=== PATIENT | male | born 1960 | race Caucasian/White ===

== ENCOUNTER → 2019-12-18 10:50 | Outpatient (CLI) | payer OTHER, SELFPAY ==
--- NOTE | ~2019-12-18 | XR_ITS ---
EXAMINATION: XR cervical spine 4-5V EXAM DATE: 12/18/2019 11:41 INDICATION: Neck pain mostly left side. Left shoulder pain. Bilateral finger tingling. TECHNIQUE: Cervical spine frontal, lateral, lateral swimmers, and open-mouth odontoid projections. There is no prior study for comparison. FINDINGS: There is mild to moderate disc disease at C5-6 and C6-7, mild at the other cervical levels . There is overall mild to moderate cervical arthropathy. There is no evidence of acute cervical frac ture. The odontoid process is intact. Pre-dens space is normal. Prevertebral soft tissue is normal . There are no soft tissue abnormalities identified. The vertebral bodies are aligned. IMPRESSION: 1. Mild to moderate cervical spondylosis. Reviewed, dictated and finalized at location A. 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
--- NOTE | ~2019-12-18 | MR_ITS ---
EXAMINATION: MR cervical spine wo con EXAM DATE: 12/18/2019 11:54 INDICATION: Neck pain, limited range of motion. Bilateral hand pain. TECHNIQUE: Multi-sequential, multiplanar MR images of the cervical spine were obtained without contra st. Axial T2, axial T2 MERGE sequence. Sagittal T1, T2, T2 fat saturation images also obtained. Cor relation is made to CT cervical spine 03/09/2016. FINDINGS: There is mild to moderate disc disease C4-7. There is 2-3 mm anterolisthesis C4 on C5. The spinal cord signal intensity and intrinsic morphology is normal. Cervicomedullary junction is normal in appearance. There are no suspicious marrow signal abnormalities. Paraspinal soft tissue is unrema rkable. Level by level evaluation: C2-C3: Disc does not extend beyond the endplate margin. Uncovertebral joint arthropathy: None. Facet joint arthropathy: Mild bilateral. Neural foraminal stenosis: No stenosis. Central canal stenosis: No stenosis. C3-C4: Disc does not extend beyond the endplate margin. Uncovertebral joint arthropathy: Mild to moderate right, mild left. Facet joint arthropathy: Moderate right, mild to moderate left. Neural foraminal stenosis: Moderate to severe right, mild to moderate left. Central canal stenosis: No stenosis. C4-C5: There is a minimal diffuse disc bulge. Uncovertebral joint arthropathy: Mild to moderate left, mild right. Facet joint arthropathy: Moderate bilateral. Fused on the right.. Neural foraminal stenosis: Mild to moderate left, mild right. Central canal stenosis: No stenosis. C5-C6: There is a mild diffuse disc bulge. Small superimposed right central extrusion with cephalad m igration. Uncovertebral joint arthropathy: Moderate left, mild to moderate right. Facet joint arthropathy: Moderate bilateral. Neural foraminal stenosis: Moderate to severe left, mild to moderate right. Central canal stenosis: Mild. C6-C7: There is a mild diffuse disc bulge. Uncovertebral joint arthropathy: Moderate left, mild to moderate right. Facet joint arthropathy: Moderate bilateral. Neural foraminal stenosis: Mild to moderate left, mild right. Central canal stenosis: Mild. C7-T1: Disc does not extend beyond the endplate margin. Uncovertebral joint arthropathy: None. Facet joint arthropathy: Mild bilateral. Neural foraminal stenosis: Mild bilateral. Central canal stenosis: No stenosis. IMPRESSION: 1. Cervical spondylosis as detailed above. Reviewed, dictated and finalized at location A. 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
== END ==
PROVIDERS: Visit Provider Physician Assistant
DX: M47.892 Other spondylosis, cervical region (principal)
CPT/HCPCS: 72050; 72141

== ENCOUNTER → 2021-03-17 08:52 | Outpatient (CLI) | payer OTHER, SELFPAY ==
[2021-03-17 18:42] LABS: SARS-CoV-2 RNA PCR Negative
== END ==
PROVIDERS: Visit Provider Physician Assistant
DX: Z20.822 Contact with and (suspected) exposure to COVID-19 (principal); R09.89 Other specified symptoms and signs involving the circulatory and respiratory systems
CPT/HCPCS: C9803; U0003; U0005

== ENCOUNTER 2024-02-11 12:30 | Outpatient (RCR) | payer OTHER, SELFPAY ==
--- NOTE | 2024-01-08 16:39 | OPREHPOC ---
Outpatient Therapy Plan of Care This is a Multidisciplinary Plan of Care that may contain components documented by all disciplines (PT, OT, and ST.) PT Problem 1 PT Problem #1 Knowledge Deficit PT Goal 1 Goal * indep with HEP * correct posture with exercises PT Problem 2 PT Problem #2 Pain PT Goal 1 Goal 1* pain in R hip of 3/10 at worst 2* LE functional scale of 35% limitation in activity level 3* standing/walking tolerance of 2 hours reported PT Problem 3 PT Problem #3 Impaired Range of Motion PT Goal 1 Goal increase ROM of R hip, to improve mobility and self care of putting on shoes: 1* supine flexion 105'; 2* ER in sitting, place R foot on L distal thigh 3* hamstring length supine SLR 50' 4* anterior hip/quad with prone knee flexion 115' PT Problem 4 PT Problem #4 Impaired Strength PT Goal 1 Goal increase strength of R hip and knee to improve mobility: 1* single leg standing 20 seconds with good stability 2* perform mat exercises x 15 reps with 3# ankle wt 3* alternating step pattern for 12 steps with good stability of R LE
--- NOTE | 2024-01-08 16:39 | PTOPEVAL1 ---
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 He wants to treat his hip issues first. His medical history includes R femur ORIF and THR in September. He has used the walker until 2 weeks ago and has returned to work. He has decreased standing, walking and ability on stairs, with issues reaching his feet to put on shoes. LE functional scale rating of 53% limitation in activity level. He has been doing some bed exercises at home and walking only. He does have a membership to [employer]. With the evaluation, he has weakness over R hip and knee with decreased WB in standing and poor gait pattern; his 5 reps sit/stand time is 15 sec = normal; 2 minute walking test distance of 425'; on stairs he has difficulty and knee pain with alternating step pattern; there is decreased flexibility over R hip motions of flexion, IR and ER, with hamstring and anterior hip-quad tightness
--- NOTE | 2024-01-17 15:13 | PCPTNOTE ---
Patient arrived 25 minutes late for 30 minute appointment. No Show.
--- NOTE | 2024-02-11 13:36 | PTOPEVAL1 ---
Assessment and note entered by Amna Barahona, PT Evaluation Information Assessment Status Discharge R hip/ EVALUATION cervical pain Diagnosis cervical radiculopathy, spinal stenosis Onset onset for neck pain about 1 year ago Subjective Information hip is doing better, more flexible- almost able to reach my foot; have been doing the exercises, going to the pool at [employer]; going to be out of town the month of February; want to have his neck evaluated today and return for treatment to neck after get back from trip in March; chronic neck pain since 2004, gradual increase over past year, no trauma to neck; more pain into arms when sitting, driving and arms hanging down; cannot sleep on his back; have seen ortho dr about neck- dr discussed surgery with pt--pt wants to hold off on surgery as long as able; recent imaging- per pt: bulging and protrusion throughout neck and entire spine; have not had PT in the past for his neck; Reported Pain Level Pain Score Self Report Additional Pain Score Comments R hip: pain range in the past week 0-3/10; walk/ stand tolerance about 1 hour; neck pain: 1-4/10; pain radicular tingle into all fingertips on R and L; increase pain: lie flat on back decrease pain: change positions, roll shoulders; motrin- helps some; hot shower helps; sleeping- neck pain awakens him 1x/week also pain: low back, R hip; Assessment PT Clinical Summary Qasim has had 7 PT sessions for his R hip. Compared to the initial eval: pain from 1-5/10 to 0-3/10; LE functional scale rating from 53% to 29 % limitation in activity level; reported standing/ walking tolerance is the same about 1 hour; increase flexibility of R hip flexion, hamstring and anterior hip-quad and increase strength of R LE; Goals were partially met--unable to put shoe on by placing R foot on L thigh and walking tolerance reported; Discharge treatment for R hip.
--- NOTE | 2024-02-11 14:33 | PCPTNOTE ---
pt stated today that he will be out of town with work for the entire month of February; he will continue to do his R hip and neck exercises until return.
--- NOTE | 2024-03-28 14:03 | PCPTNOTE ---
This treatment is being continued to visit number [id number]. Please see documentation on both accounts to view progress. Completed interventions, outcomes, and problems have been marked as Inactive to facilitate the copying of the Care plan routine for recurring accounts.
== END 2024-03-28 10:27 | disposition home or self-care (01) ==
LOC: ANHPT 12:30
PROVIDERS: PCP Family Medicine
DX: M54.2 Cervicalgia (principal); M54.12 Radiculopathy, cervical region; M48.02 Spinal stenosis, cervical region
CPT/HCPCS: 97110; 97161; 97530; 99199

== ENCOUNTER 2025-01-16 14:38 | Outpatient (CLI) | payer OTHER, SELFPAY ==
--- NOTE | ~2025-01-16 | CT_ITS ---
EXAMINATION: CT abdomen pelvis wo con DATE: 01/16/2025 14:58 INDICATION: Right flank and groin pain TECHNIQUE: Computed tomography (CT) of the abdomen and pelvis was performed without intravenous contr ast. Automated exposure control and iterative reconstruction technique were employed. The dose-length product was 603.23 mGy-cm. COMPARISON: 03/09/2016 FINDINGS: Moderate-sized sliding-type hiatal hernia with additional mild compressive atelectasis in the medial aspect of the bilateral lower lobes. Heart size is normal. No pericardial or pleural effusion. Liver, decompressed gallbladder, spleen, pancreas, bilateral adrenal glands are normal. Kidneys and ureters are normal with no urolithiasis, hydroureteronephrosis or perinephric/ureteral stranding. Normal ret rocecal appendix. There is mild to moderate diverticulosis along the descending and sigmoid colon wit hout adjacent inflammatory change to suggest diverticulitis. No bowel obstruction. Bladder is normal. No free intraperitoneal gas or fluid. No pathologically enlarged abdominal or pelvic lymphadenopathy . right total hip arthroplasty in expected position. Mild lumbar and lower thoracic spondylosis. IMPRESSION: 1. No urolithiasis or acute intra-abdominal/pelvic process. 2. Moderate-sized sliding-type hiatal hernia. 3. Sigmoid and descending colon predominant diverticulosis. Reviewed, dictated and finalized at location A.
== END 2025-01-16 14:39 | disposition home or self-care (01) ==
PROVIDERS: PCP Family Medicine; Visit Provider Family Medicine
DX: K44.9 Diaphragmatic hernia without obstruction or gangrene (principal); K57.30 Diverticulosis of large intestine without perforation or abscess without bleeding
CPT/HCPCS: 74176